=== PATIENT | male | born 1965 | race Caucasian/White ===

== ENCOUNTER 2018-08-05 11:55 | Day surgery (SDC) | payer OTHER ==
[~2018-08-05] VITALS: Ht 162.6 cm; Wt 76.3 kg
[2018-08-05 13:03] VITALS: Ht 162.6 cm; Wt 76.3 kg
[2018-08-05] MEDS ORDERED: NO HOME MEDS (13:21)
[2018-08-05 13:31] VITALS: BP 129/73; PULSE 69; RESP 20
--- NOTE | 2018-08-05 14:08 | PREAC ---
Date/Time of Note Date/Time of Note DATE: 08/05/18 TIME: 14:06 Anesthesia Eval and Record Evaluation Time Pre-Procedure Interview DATE: 08/05/18 TIME: 14:06 Age 52 Sex male NPO: 8 hrs Preoperative diagnosis Abdominal Pain Planned procedure Colonoscopy Past Medical History Past Medical History: None Surgery & Anesthesia Issues No known issue Meds Anticoagulation: No Beta Eric within 24 hr: No Reason Beta Eric not given: Pt. not on B-Eirc Reported Medications [No Home Meds] No Conflict Check 08/05/18 Meds reviewed: Yes Allergies Coded Allergies: No Known Allergy (Unverified , 08/05/18) Allergies Reviewed: Yes Labs/Studies Labs Reviewed: Reviewed by anesthesiologist test: N/A Studies: ECG (n/a), CXR (n/a) Pre-procedure Exam Last vitals Vital Signs Date Temp Pulse Resp B/P (MAP) Pulse Ox O2 O2 Flow FiO2 Time Delivery Rate 08/05/18 98.3 69 20 129/73 98 Room Air 13:31 (91) Airway: Adequate mouth opening, Adequate thyromental dist Mallampati: Mallampati II Teeth: Normal Lung: Normal Heart: Normal ASA Physical Status ASA physical status: 2 Emergency: None Planned Anesthetic General/MAC: MAC Planned Pain Management Parenteral pain med Pre-operative Attestations Prior to commencing anesthesia and surgery, the patient was re-evaluated, there was verification of: *The patient's identity *The results of appropriate recent lab work and preoperative vital signs *The above evaluation not changing prior to induction *Anesthetic plan, risk benefits, alternative and complications discussed with patient/family; questions answered; patient/family understands, accepts and wishes to proceed. KEITH MARISCAL MD Aug 05, 2018 14:08
--- NOTE | 2018-08-05 14:39 | PAC ---
Date/Time of Note Date/Time of Note DATE: 08/05/18 TIME: 14:39 Post-Anesthesia Notes Post-Anesthesia Note Last documented vital signs Vital Signs Date Temp Pulse Resp B/P (MAP) Pulse Ox O2 O2 Flow FiO2 Time Delivery Rate 08/05/18 98.3 69 20 129/73 98 Room Air 14:46 (91) Activity: WNL Respiratory function: WNL Cardiovascular function: WNL Mental status: Baseline Pain reasonably controlled: Yes Hydration appropriate: Yes Nausea/Vomiting absent: Yes KEITH MARISCAL MD Aug 05, 2018 14:39
--- NOTE | 2018-08-05 14:44 | HPN ---
Date/Time of Note Date/Time of Note DATE: 08/05/18 TIME: 14:43 Interval H&P Admission Note Pt. seen H&P reviewed: No system changes MERA TRIPATHI Aug 05, 2018 14:44
== END 2018-08-05 16:11 | disposition home or self-care (01) ==
LOC: GIL 11:55
PROVIDERS: ATTEND Internal Medicine Gastroenterology
DX: Z12.11 Encounter for screening for malignant neoplasm of colon (principal); K57.30 Diverticulosis of large intestine without perforation or abscess without bleeding; K64.0 First degree hemorrhoids
CPT/HCPCS: 45378; Z7610